=== PATIENT | male | born 1980 | race Caucasian/White ===

== ENCOUNTER 2016-04-06 07:39 | Day surgery (SDC) | payer OTHER ==
[~2016-04-06] VITALS: Ht 182.9 cm; Wt 77.9 kg
[2016-04-06 08:20] VITALS: BP 146/94; PULSE 78; RESP 16; TEMP 98.1; O2SAT 99
[2016-04-06] MEDS ORDERED: TOPR50TA PO (08:20)
[2016-04-06] MEDS ORDERED: ASPI1TAB69 PO (08:20)
[2016-04-06] MEDS ORDERED: SODIUM BICARBONATE 100 MEQ in D5W 1000 ML IV SCH (08:30)
[2016-04-06] MEDS ORDERED: SODIUM CHLORIDE 0.9% FLUSH 5 ML FLUSH IV FLUSH PRN (08:30)
[2016-04-06] MEDS ORDERED: SODIUM CHLORIDE 0.9% FLUSH 5 ML FLUSH IV FLUSH SCH (09:00)
[2016-04-06 09:08] LABS: AUTOMATED NEUTROPHIL # 4.3 TH/MM3 (1.8-7.7); BASOPHIL # 0.1 TH/MM3 (0-0.2); BASOPHIL % 0.8 % (0.0-2.0); EOSINOPHIL # 0.3 TH/MM3 (0-0.4); EOSINOPHIL % 4.1 % (0.0-4.0); HEMO FLAGS DIFF FINAL; LYMPH % 20.3 % (9.0-44.0); LYMPHOCYTE # 1.3 TH/MM3 (1.0-4.8); MEAN CELL VOLUME 89.5 FL (80.0-100.0); MEAN CORPUSCULAR HEMOGLOBIN 31.2 PG (27.0-34.0); MEAN CORPUSCULAR HGB CONC 34.9 % (32.0-36.0); NEUT % 67.8 % (16.0-70.0); PLATELET COUNT 294 TH/MM3 (150-450); RED BLOOD COUNT 5.13 MIL/MM3 (4.50-5.90); RED CELL DISTRIBUTION WIDTH 12.1 % (11.6-17.2); WHITE BLOOD COUNT 6.3 TH/MM3 (4.0-11.0)
[2016-04-06 09:21] LABS: APTT (PATIENT) 27.6 SEC (24.3-30.1); PROTHROMBIN TIME - PATIENT 10.6 SEC (9.8-11.6)
[2016-04-06 09:29] LABS: BICARBONATE 32.8 MEQ/L (21.0-32.0); POTASSIUM 3.9 MEQ/L (3.5-5.1)
[2016-04-06] MEDS ORDERED: MIDAZOLAM HCL 5 MG/5 ML VIAL ONE (10:22)
[2016-04-06] MEDS ORDERED: ceFAZolin INJ 1,000 MG VIAL ONE (10:24)
[2016-04-06] MEDS ORDERED: BUPIVACAINE HCL PF 0.5% 10 ML VIAL ONE (10:26)
[2016-04-06] MEDS ORDERED: LIDOCAINE HCL 2% 50 ML VIAL ONE (10:26)
--- NOTE | 2016-04-06 10:57 | HHI.PR ---
Immediate Post Op Note Procedure Date: Apr 06, 2016 Pre Op Diagnosis: R LE bleeding varicosities Post Op Diagnosis: R LE bleeding varocities Surgeon: Domo Perdomo Dredge Runner(s): none Procedure: R LE stab phlebectomy Findings: friable veins Complications: none Specimen(s) removed: none Estimated blood loss: 15 mL Anesthesia: MAC, Local Drains: None Patient to: Other (docu) Patient Condition: Good Implant/Devices: SEE IMPLANT LOG (if applicable) Date/Time of Procedure: SEE SURGICAL CARE RECORD Domo Perdomo MD Apr 06, 2016 10:57
--- NOTE | 2016-04-07 10:30 | MP ---
cc: EDGARD PERDOMO MD DATE OF SURGERY 04/06/16 PREOPERATIVE DIAGNOSIS Left lower extremity bleeding varicosities POSTOPERATIVE DIAGNOSIS Left lower extremity bleeding varicosities OPERATION Left lower extremity staphylectomy SURGEON James Perdomo MD WASTE/MATERIALS EXCHANGE SPECIALIST None ANESTHESIA Local with sedation INDICATIONS Mr. 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 He has right lower extremity venous insufficiency and bleeding varicosities. He was taken to the operating room for staphylectomy after failing compression hose. Informed consent was obtained. The patient was taken to the operating room and placed supine on the operating room table. An appropriate time out was taken to ensure the patient's identify, operative site and planned procedure. After administration of 2 grams of Kefzol was initiated prior to the skin incision, will be discontinued after single preop dose. Everyone in the room agreed to the time out procedure. His right leg was prepped and draped. After local anesthesia was infiltrated, an 11 blade was used to incise the area overlying the varicosities. The veins were phlebectomized without difficulty. Hemostasis was achieved with manual compression. The wounds were closed with chromic suture. There were no complication. I was present and scrubbed for the entire procedure. MD MARII Mccarthy/ /11:26 AM /10:15 AM MTDBarbie
== END 2016-04-06 12:45 | disposition home or self-care (01) ==
LOC: HDOC 07:39 → HDIC 07:39 → HDOC 12:45
PROVIDERS: ATTEND Surgery
DX: I83.892 Varicose veins of left lower extremity with other complications (principal); I87.2 Venous insufficiency (chronic) (peripheral)
CPT/HCPCS: 37765; 80048; 85025; 85610; 85730; J0690; J2250; J3010; J7070

== ENCOUNTER 2016-12-01 12:13 | Day surgery (SDC) | payer OTHER ==
[~2016-12-01] VITALS: Ht 182.9 cm; Wt 63.4 kg
[~2016-12-01 12:13] MED LIST: ASPI1TAB69 PO; TOPR50TA PO
[2016-12-01 13:00] VITALS: BP 141/87; PULSE 82; RESP 20; O2SAT 97
[2016-12-01] MEDS ORDERED: SODIUM CHLORIDE FLUSH PRN IV FLUSH (13:15)
[2016-12-01 14:16] LABS: AUTOMATED NEUTROPHIL # 4.4 TH/MM3 (1.8-7.7); BASOPHIL # 0.1 TH/MM3 (0-0.2); BASOPHIL % 0.9 % (0.0-2.0); EOSINOPHIL # 0.5 TH/MM3 (0-0.4); EOSINOPHIL % 7.4 % (0.0-4.0); HEMATOCRIT 44.2 % (39.0-51.0); HEMO FLAGS DIFF FINAL; LYMPH % 19.3 % (9.0-44.0); LYMPHOCYTE # 1.3 TH/MM3 (1.0-4.8); MEAN CELL VOLUME 91.7 FL (80.0-100.0); MEAN CORPUSCULAR HEMOGLOBIN 31.4 PG (27.0-34.0); MEAN CORPUSCULAR HGB CONC 34.2 % (32.0-36.0); MONO % 8.1 % (0.0-8.0); NEUT % 64.3 % (16.0-70.0); PLATELET COUNT 272 TH/MM3 (150-450); RED BLOOD COUNT 4.81 MIL/MM3 (4.50-5.90); RED CELL DISTRIBUTION WIDTH 12.1 % (11.6-17.2); WHITE BLOOD COUNT 6.8 TH/MM3 (4.0-11.0)
[2016-12-01 14:33] LABS: BICARBONATE 30.7 MEQ/L (21.0-32.0)
--- NOTE | 2016-12-01 14:47 | PD.VS.PN ---
Pre-operative Note Pre-operative diagnosis: R LE varicose veins Planned procedure: R LE stab phlebectomy Interval History: Pt ready for surgery - no F/C or other changes that would preclude surgery Labs: Laboratory Results Test 12/01/16 13:05 Anion Gap 6 MEQ/L (5-15) Blood Urea Nitrogen 12 MG/DL (7-18) Creatinine 0.91 MG/DL (0.60-1.30) Random Glucose 84 MG/DL (74-106) Calcium Level 9.1 MG/DL (8.5-10.1) Sodium Level 139 MEQ/L (136-145) Potassium Level 4.0 MEQ/L (3.5-5.1) Chloride Level 102 MEQ/L (98-107) Carbon Dioxide Level 30.7 MEQ/L (21.0-32.0) Hematocrit 44.2 % (39.0-51.0) Hemoglobin 15.1 GM/DL (13.0-17.0) Mean Corpuscular Hemoglobin 31.4 PG (27.0-34.0) Mean Corpuscular Hemoglobin Concent 34.2 % (32.0-36.0) Mean Corpuscular Volume 91.7 FL (80.0-100.0) Mean Platelet Volume 8.7 FL (7.0-11.0) Platelet Count 272 TH/MM3 (150-450) Red Blood Count 4.81 MIL/MM3 (4.50-5.90) Red Cell Distribution Width 12.1 % (11.6-17.2) White Blood Count 6.8 TH/MM3 (4.0-11.0) Blood: none Imaging: none Orders: NPO Ancef 2g IV OCTOR Post-operative destination: DOCU Operative site marked: Yes Consent: Informed consent has been obtained from Christopher Brantley III. I have explained the procedure in detail and discussed the risks, benefits, and potential complications. All questions have been answered. Domo Perdomo MD Dec 01, 2016 14:47
[2016-12-01] MEDS ORDERED: MIDAZOLAM HCL 2 MG/2 ML VIAL ONE (15:01)
[2016-12-01] MEDS ORDERED: LIDOCAINE HCL 2% 50 ML VIAL ONE (15:07)
[2016-12-01] MEDS ORDERED: ceFAZolin INJ 1,000 MG VIAL ONE (15:07)
--- NOTE | 2016-12-01 15:37 | CATHPROC ---
[employer] HIS Report Study Information Study Number Admission Scheduled Start Study Start [id number] Dec 01 2016 12:13PM 12/01/2016 Dec 01 2016 2:55PM [place] Service Cath Endovascular Study Admit Source Facility Department Other [facility] Physician and Clinical Staff Initial Domo Christiansen Assistant Professor Of History Nehemiah Mendez,RONALD Recorder Fredis Bassett,RT(R) Scrub Ayush Leach,RT(R) Equipment Time Compensation Advisor Description Size Mfg Part Number Used/Scraped 14:59 BUNDLE-MEDTRONIC PACK, ARC AND GAS WELDER CLOSUREFAST CFP *[id number] Used History: Risk Factors Family History of Hypertension Dyslipidemia Previous GA Previous Heart Failure Premature CAD No No No No No Prior Valve Prior PCI Prior CABG Surgery No No No Cerebrovascular Peripheral Artery Chronic Lung On Dialysis Diabetes Disease Disease Disease No No No No No History: Stress Tests Stress or Imaging Studies Performed No History: Other Current Smoker No Labs CPK-MB (ng/ML) 0.50-3.60 Not Drawn Medication Medication Total Dose (Bolus/Oral) Medication Total Dosage/Unit FENTANYL 125 mcg VERSED 2 mg Medications (Bolus/Oral) Medication Time Given Dosage/Unit Administered By Reason VERSED 12/01/2016 3:07:47 PM 2 mg Nehemiah Mendez 2 mg VERSED given in lab by Nehemiah Mendez RN in Left Antecubital via Peripheral IV. FENTANYL 12/01/2016 3:07:53 PM 50 mcg Nehemiah Mendez 50 mcg FENTANYL given in lab by Nehemiah Mendez RN in Left Antecubital via Peripheral IV. FENTANYL 12/01/2016 3:10:19 PM 50 mcg Nehemiah Mendez 50 mcg FENTANYL given in lab by Nehemiah Mendez RN in Left Antecubital via Peripheral IV. FENTANYL 12/01/2016 3:10:47 PM 25 mcg Nehemiah Mendez 25 mcg FENTANYL given in lab by Nehemiah Mendez RN in Left Antecubital via Peripheral IV. Medication (Drip) Medication Time Given Dosage/Unit Concentration/Unit Diluent (ml) Solutio n ANCEF 12/01/2016 3:10:57 PM 2 g 2 g ANCEF given in lab by Nehemiah Mendez RN in Left Antecubital via Peripheral IV. IV Solutions 12/01/2016 2:59:59 PM 0 mL (IV) 500 NaCl .9 IV Solutions given in lab by Nehemiah Mendez RN in Left Antecubital via Peripheral IV. Pump/Drip Flow = 20 ml/hr using NaCl .9. Initial Case Assessment Cardiovascular HR Rhythm Chest Pain 89 Sinus 0 Edema Present Skin color Skin None Normal Warm Dry Neurological State Oriented to time-place- Alert Moves all extremities person Respiration - General Respiration Rate SpO2 (%) O2 (lpm) (B/min) 20 97 0 Final Case Assessment Cardiovascular HR Rhythm NIBP Chest Pain 85 Sinus 120/90 0 Edema Present Skin color Skin None Normal Warm Dry Neurological State Oriented to time-place- Alert Moves all extremities person Respiration - General Respiration Rate SpO2 (%) O2 (lpm) (B/min) 11 91 0 Chronological Log Time Study Chronological Log 14:54:55 Patient arrived via Bed. 14:54:56 Patient Name, D.O.B, / Armband Verified By R.N. 14:54:57 Consent signed by the physician and the patient and verified by the [facility] staff. 14:54:57 Pre-op and post- op instructions given; patient acknowledges understanding of instructions. 14:54:58 Verbal Stimulation=2 Physical Stimulation=2 Airway=2 Respiration=2 TOTAL=8. (0=absent, 1=li mited, 2=present) 14:59:25 Presedation assessment performed by [facility] RN. 14:59:28 Patient has been NPO for More than 6Hrs. 14:59:29 Skin Breakdown- none per patient. 14:59:44 Bambi Prominences Protected 14:59:46 A # 20 IV was noted in the Antecubital (left). Grade = 0 IV Solutions given in lab by Nehemiah Mendez, RN in Left Antecubital via Peripheral IV. Pump/Dri p Flow = 20 ml/hr using 14:59:59 NaCl .9. 15:00:19 History and physical on the chart or being dictated. Assessment: Initial Case, HR=89 BPM, Rhythm=Sinus, Chest Pain=0, Edema=None, Color=Normal, Skin = Warm, Dry 15:00:23 Neurological: State=Alert, Ox3, REID Respiration: Resp=20 B/min, SpO2=97 %, O2=0 lpm 15:00:32 MD arrived. Vitals capture started with the following parameters, Patient=Adult, Interval=5 min, Initial Ahdkzdrp=578 mmHg, 15:00:39 Deflation Rate=5 mmHg 15:01:50 HR=90 bpm, ODMA=196/91 mmhg, SpO2=96.0 %, Resp=35 B/min, Pain=0, Diana=10, Adan=2 15:04:11 Right leg prepped with 2% chlorhexidine, and draped after a 3 min. waiting time. 15:06:13 HR=92 bpm, VEHM=006/99 mmhg, SpO2=97.0 %, Resp=16 B/min, Pain=0, Diana=10, Adan=2 Time Out. Correct patient, correct procedure, correct physician, power injector loaded, or no t loaded with contrast with 15:06:44 surgical team present. Time Out Concurred by MD and individual staff in procedure. 15:06:47 Case Start 15:07:47 2 mg VERSED given in lab by Nehemiah Mendez RN in Left Antecubital via Peripheral IV. 15:07:53 50 mcg FENTANYL given in lab by Nehemiah Mendez RN in Left Antecubital via Peripheral IV. 15:10:19 50 mcg FENTANYL given in lab by Nehemiah Mendez RN in Left Antecubital via Peripheral IV. Stab Phlebectomy Right leg. 15:10:46 15:10:47 25 mcg FENTANYL given in lab by Nehemiah Mendez RN in Left Antecubital via Peripheral IV. 15:10:57 2 g ANCEF given in lab by Nehemiah Mendez RN in Left Antecubital via Peripheral IV. 15:11:14 HR=87 bpm, PIHS=678/84 mmhg, SpO2=92.0 %, Resp=11 B/min, Pain=0, Diana=10, Adan=2 15:16:11 HR=87 bpm, VHXA=922/87 mmhg, SpO2=88.0 %, Resp=14 B/min, Pain=0, Diana=10, Adan=2 15:21:18 HR=84 bpm, KHQC=367/63 mmhg, SpO2=91.0 %, Resp=14 B/min, Pain=0, Diana=10, Adan=2 15:26:13 HR=82 bpm, BBWU=065/83 mmhg, SpO2=94.0 %, Resp=10 B/min, Pain=0, Diana=10, Adan=2 15:31:14 HR=83 bpm, DVUU=775/90 mmhg, SpO2=90.0 %, Resp=22 B/min, Pain=0, Diana=10, Adan=2 15:33:39 Case End Assessment: Final Case, HR=85 BPM, Rhythm=Sinus, QLVP=404/90 mmhg, Chest Pain=0, Edema=None, Color=Normal, Skin = Warm, Dry 15:34:41 Neurological: State=Alert, Ox3, REID Respiration: Resp=11 B/min, SpO2=91 %, O2=0 lpm 15:35:14 Sterile dressing applied to site 15:35:15 No case complications noted. 15:36:13 HR=84 bpm, KJQV=781/90 mmhg, SpO2=92.0 %, Resp=13 B/min, Pain=0, Diana=10, Adan=2 15:37:12 Vitals capture stopped. 15:40:09 [facility] - Patient Disposition Complications Not selected
--- NOTE | 2016-12-01 15:38 | HHI.PR ---
Immediate Post Op Note Procedure Date: Dec 01, 2016 Pre Op Diagnosis: R LE venous insufficiency Post Op Diagnosis: R LE venous insufficiency Surgeon: Domo Perdomo International Freight Forwarder(s): Darshan Yoon MS4 Procedure: R LE stab phlebectomy Findings: thrombosed varicose veins Complications: none Specimen(s) removed: none for pathology Estimated blood loss: 20mL Anesthesia: MAC, Local Drains: None Fluids: 500mL IVF Patient to: Other (DOCU) Patient Condition: Good Date/Time of Procedure: SEE SURGICAL CARE RECORD Domo Perdomo MD Dec 01, 2016 15:38
[2016-12-01] MEDS ORDERED: ASPI81CH PO (16:52)
[2016-12-01] MEDS ORDERED: OXYC1CAP PO (16:55)
[2016-12-01] MEDS ORDERED: SODIUM CHLORIDE FLUSH BID IV FLUSH SCH (21:00)
--- NOTE | 2016-12-02 07:22 | MP ---
cc: EDGARD PERDOMO MD DATE OF SURGERY 12/01/2016 PREOPERATIVE DIAGNOSIS Right extremity bleeding varicosities POSTOPERATIVE DIAGNOSIS Right extremity bleeding varicosities PROCEDURE Right lower extremity stab phlebectomy ATTENDING SURGEON Edgard Perdomo MD DIRECTOR OF PRECLINICAL RESEARCH SURGEON Darshan Yoon, MS-4 INDICATIONS Mr. Brantley is a young man who has a longstanding history of venous hypertension. He is wearing compression therapy regularly and he has had several episodes of refractory bleeding from these varicosities and he is taken to the operating room for excision. DESCRIPTION OF PROCEDURE Informed consent was obtained from the patient. He was taken to the operating room, placed supine on the operating table and an appropriate time-out was taken to ensure the patient's identity, operative site and planned procedure. The administration of 2 grams of Ancef was initiated prior to the skin incision and will be discontinued after a single preoperative dose. Everyone in the room agreed with the time-out and we proceeded. His right leg was prepped and draped and locally anesthetized with 1% lidocaine under the areas of the varicosities. These varicosities were phlebectomized without any difficulty using an 11 blade and a hemostat and manual pressure was held for hemostasis. They were closed with 5-0 chromic suture and the wound was irrigated and wrapped with Kerlix and Bud bandage. There were no complications. I was present, scrubbed and performed the entire procedure. Edgard Perdomo MD RJEvelyne/CHARLENE /9:58 PM /7:14 AM
== END 2016-12-01 17:42 | disposition home or self-care (01) ==
LOC: HDOC 12:13 → HDIC 12:14 → HDOC 17:42
PROVIDERS: ATTEND Surgery
DX: I83.891 Varicose veins of right lower extremity with other complications (principal)
CPT/HCPCS: 37765; 80048; 85025; J0690; J2250; J3010